=== PATIENT | male | born 1985 | race Caucasian/White ===

== ENCOUNTER 2017-10-13 22:47 | Inpatient (IN) | payer SELFPAY ==
[2017-10-13] MEDS: NOREPINEPHRIN PREMIX 250 ML IV (23:04)
[2017-10-13] MEDS ORDERED: PROPOFOL 50 ML IV (23:10)
[2017-10-13 23:12] LABS: POC GLUCOSE 220 mg/dL (70-99)
[2017-10-13 23:15] LABS: PCO2 ABG 74 mmHg (35-46)
[2017-10-13 23:16] LABS: BASE EXCESS ABG -8 mmol/L (-3-3); FIO2 ABG 100; HCO3 ABG 23 mmol/L (21-28); PH ABG 7.11 (7.35-7.45); PO2 ABG 463 mmHg (85-108); SAT O2 ABG 99 % (92-99)
[2017-10-13 23:18] LABS: ADD MAN DIFF? NO; BASO # 0.1 x10^3/uL (0.0-0.2); BASO % 1 % (0-3); EOS % 1 % (0-3); HEMOGLOBIN 14.9 g/dL (13.0-17.5); LYMPH # 3.3 x10^3/uL (1.0-4.8); LYMPH % 57 % (24-48); MEAN CORPUSCULAR HEMOGLOBIN 36 pg (25-35); MEAN CORPUSCULAR HGB CONC 34 g/dL (31-37); MEAN CORPUSCULAR VOLUME 107 fL (79-100); MONO # 0.7 x10^3/uL (0.0-1.1); MONO % 12 % (0-9); NEUT # 1.7 x10^3uL (1.8-7.7); NEUT % 30 % (31-73); PLATELET COUNT 236 x10^3/uL (140-400); RED BLOOD COUNT 4.09 x10^6/uL (4.30-5.70); RED CELL DISTRIBUTION WIDTH 13.9 % (11.5-14.5); WHITE BLOOD COUNT 5.7 x10^3/uL (4.0-11.0)
[2017-10-13] MEDS: PROPOFOL 20 ML IV (23:20)
[2017-10-13 23:24] LABS: BILIRUBIN,URINE NEGATIVE (NEG); CLARITY,URINE CLEAR; COLOR,URINE YELLOW; GLUCOSE,URINE NEGATIVE (NEG); NITRITE,URINE NEGATIVE (NEG); PROTEIN,URINE 30 mg/dL (NEG-TRACE); UROBILINOGEN,URINE 0.2 mg/dL (0.2 mg/dL)
[2017-10-13 23:26] LABS: ANION GAP 8 (6-14); BLOOD UREA NITROGEN 13 mg/dL (8-26); BUN/CREATININE RATIO 14 (6-20); CALCIUM 7.4 mg/dL (8.5-10.1); CARBON DIOXIDE 31 mmol/L (21-32); CHLORIDE 113 mmol/L (98-107); CREATININE 0.9 mg/dL (0.7-1.3); GFR 97.2; GLUCOSE 127 mg/dL (70-99); POTASSIUM 4.4 mmol/L (3.5-5.1); SODIUM 152 mmol/L (136-145)
[2017-10-13 23:30] LABS: BARBITURATES NEG (NEG); BENZODIAZEPINES NEG (NEG); CANNABINOIDS NEG (NEG); COCAINE NEG (NEG); METHADONE NEG (NEG); OPIATES POS (NEG); PHENCYCLIDINE NEG (NEG)
[2017-10-13 23:31] LABS: ALBUMIN 3.5 g/dL (3.4-5.0); ALBUMIN/GLOBULIN RATIO 1.1 (1.0-1.7); ALK PHOS 57 U/L (46-116); ALT (SGPT) 117 U/L (16-63); AMPHETAMINE/METHAMPHETAMINE NEG (NEG); AST (SGOT) 77 U/L (15-37); ETHANOL, URINE POS (NEG); TOTAL BILIRUBIN 0.2 mg/dL (0.2-1.0); TOTAL PROTEIN 6.6 g/dL (6.4-8.2)
[2017-10-13 23:33] LABS: TROPONINI < 0.017 ng/mL (0.000-0.055)
[2017-10-13 23:38] LABS: ACETAMIN < 2 mcg/ml (10-30); ETHANOL 387 mg/dL (0-10); SALIC 3.1 mg/dL (2.8-20.0)
[2017-10-13 23:41] LABS: BACTERIA,URINE 0 /HPF (0-FEW); WBC,URINE OCC /HPF (0-4)
[2017-10-13 23:42] LABS: SPERM,URINE PRESENT /HPF
[2017-10-14] MEDS: IV NORMAL SALINE 1000ML BAG 1,000 ML IV ×6 (00:15→10:15)
[2017-10-14] MEDS ORDERED: 0.9 % SODIUM CHLORIDE 10 ML DISP.SYRIN. IV (01:00)
[2017-10-14] MEDS ORDERED: MINERAL OIL/PETROLATUM,WHITE OPHTH OINT 3.5GM TUBE. OU (01:00)
[2017-10-14] MEDS ORDERED: fentaNYL PF VIAL 100 MCG/2 ML VIAL IV (01:00)
[2017-10-14] MEDS: PROPOFOL 100 ML IV ×4 (01:05→20:31)
[2017-10-14] MEDS: VECURONIUM BOLUS 10 MG VIAL. IV ×7 (01:47→20:30)
[2017-10-14 02:15] LABS: LACTIC ACID 5.1 mmol/L (0.4-2.0)
[2017-10-14 03:08] LABS: POC GLUCOSE 118 mg/dL (70-99)
[2017-10-14 03:46] LABS: BASE EXCESS ABG -9 mmol/L (-3-3); BODY TEMP ABG 89.6 DEG; CORRECTED PCO2 ABG 38 mmHg; CORRECTED PH ABG 7.28; CORRECTED PO2 ABG 61 mmHg; HCO3 ABG 19 mmol/L (21-28); PCO2 ABG 47 mmHg (35-46); PH ABG 7.22 (7.35-7.45); PO2 ABG 84 mmHg (85-108); SAT O2 ABG 94 % (92-99)
[2017-10-14 04:03] LABS: POC GLUCOSE 142 mg/dL (70-99)
[2017-10-14 04:08] LABS: ANION GAP 14 (6-14); BLOOD UREA NITROGEN 12 mg/dL (8-26); CALCIUM 7.1 mg/dL (8.5-10.1); CARBON DIOXIDE 22 mmol/L (21-32); CHLORIDE 113 mmol/L (98-107); CREATININE 0.7 mg/dL (0.7-1.3); GFR 129.9; GLUCOSE 156 mg/dL (70-99); MAGNESIUM 1.7 mg/dL (1.8-2.4); SODIUM 149 mmol/L (136-145)
[2017-10-14 04:12] LABS: LACTIC ACID 2.1 mmol/L (0.4-2.0)
[2017-10-14 04:18] LABS: POTASSIUM 3.4 mmol/L (3.5-5.1)
[2017-10-14 04:21] LABS: CKMB MASS 2.8 ng/mL (0.0-3.6); CREATINE KINASE 273 U/L (39-308)
[2017-10-14] MEDS: PIPERACILLIN/TAZOBACTAM 3.375 GM in IV NORMAL SALINE 50ML 50 ML IV ×4 (04:51→22:47)
[2017-10-14] MEDS ORDERED: PIPERACILLIN/TAZOBACTAM 3.375 GM in IV NORMAL SALINE 50ML 50 ML IV (05:00)
[2017-10-14] MEDS: MEPERIDINE PF 25 MG/ML VIAL. IV (05:19)
[2017-10-14] MEDS: POTASSIUM CHLORIDE 20MEQ 50 ML IV ×2 (05:22→06:38)
[2017-10-14] MEDS: ACETAMINOPHEN 650 MG/20.3 ML SOLUTION. NG ×3 (06:00→17:15)
[2017-10-14] MEDS: MAGNESIUM SULFATE 2GM 50 ML IV (06:12)
[2017-10-14 06:29] LABS: HEMATOCRIT 41.7 % (39.0-53.0); HEMOGLOBIN 14.2 g/dL (13.0-17.5); MEAN CORPUSCULAR HEMOGLOBIN 36 pg (25-35); MEAN CORPUSCULAR HGB CONC 34 g/dL (31-37); MEAN CORPUSCULAR VOLUME 105 fL (79-100); PLATELET COUNT 220 x10^3/uL (140-400); RED BLOOD COUNT 3.96 x10^6/uL (4.30-5.70); RED CELL DISTRIBUTION WIDTH 13.4 % (11.5-14.5); WHITE BLOOD COUNT 8.1 x10^3/uL (4.0-11.0)
[2017-10-14 06:39] LABS: PARTIAL THROMBOPLASTIN TIME 20 SEC (24-38); PROTHROMBIN TIME PATIENT 12.9 SEC (11.7-14.0)
[2017-10-14 07:03] LABS: TROPONINI 1.262 ng/mL (0.000-0.055)
[2017-10-14 08:59] LABS: BASE EXCESS ABG -7 mmol/L (-3-3); HCO3 ABG 18 mmol/L (21-28); PCO2 ABG 34 mmHg (35-46); PH ABG 7.33 (7.35-7.45); PO2 ABG 130 mmHg (85-108); SAT O2 ABG 98 % (92-99)
[2017-10-14 09:03] LABS: BODY TEMP ABG 91.9 DEG; CORRECTED PCO2 ABG 29 mmHg; CORRECTED PH ABG 7.38; CORRECTED PO2 ABG 109 mmHg
[2017-10-14 09:05] LABS: FIO2 ABG 50
[2017-10-14 09:09] LABS: ANION GAP 17 (6-14); BLOOD UREA NITROGEN 17 mg/dL (8-26); CALCIUM 7.3 mg/dL (8.5-10.1); CARBON DIOXIDE 20 mmol/L (21-32); CHLORIDE 114 mmol/L (98-107); CREATININE 0.7 mg/dL (0.7-1.3); GFR 129.9; GLUCOSE 102 mg/dL (70-99); MAGNESIUM 2.5 mg/dL (1.8-2.4); PHOSPHORUS 2.5 mg/dL (2.6-4.7); POTASSIUM 3.6 mmol/L (3.5-5.1); SODIUM 151 mmol/L (136-145)
[2017-10-14 09:11] LABS: IONIZED CALCIUM 0.95 mmol/L (1.13-1.32)
[2017-10-14 09:12] LABS: LIPASE 1779 U/L (73-393)
[2017-10-14] MEDS: FAMOTIDINE 20 MG/2 ML VIAL IVP ×2 (09:12→21:23)
[2017-10-14 09:19] LABS: NT-PRO BNP 48 pg/mL (0-124)
[2017-10-14] MEDS: CALCIUM GLUCONATE 1,000 MG in IV NORMAL SALINE 100ML 100 ML IV (10:27)
[2017-10-14] MEDS: SODIUM BICARB ADULT 8.4% 50 MEQ/50 ML DISP.SYRIN. IV (10:52)
[2017-10-14] MEDS: ENOXAPARIN 40 MG/0.4 ML SYRINGE. SQ (12:00)
[2017-10-14] MEDS: ALTEPLASE 2 MG VIAL INT CAT (12:21)
[2017-10-14 12:28] LABS: ANION GAP 15 (6-14); BLOOD UREA NITROGEN 18 mg/dL (8-26); CALCIUM 7.4 mg/dL (8.5-10.1); CARBON DIOXIDE 22 mmol/L (21-32); CHLORIDE 112 mmol/L (98-107); CREATININE 0.5 mg/dL (0.7-1.3); GFR 191.5; GLUCOSE 89 mg/dL (70-99); PHOSPHORUS 1.9 mg/dL (2.6-4.7); SODIUM 149 mmol/L (136-145)
[2017-10-14 12:33] LABS: LACTIC ACID 1.5 mmol/L (0.4-2.0)
[2017-10-14 14:00] LABS: ALBUMIN 3.6 g/dL (3.4-5.0); ALK PHOS 68 U/L (46-116); ALT (SGPT) 248 U/L (16-63); AST (SGOT) 297 U/L (15-37); DIRECT BILIRUBIN 0.2 mg/dL (0.0-0.2); TOTAL BILIRUBIN 0.3 mg/dL (0.2-1.0); TOTAL PROTEIN 6.4 g/dL (6.4-8.2)
[2017-10-14 14:04] LABS: HEMATOCRIT 41.4 % (39.0-53.0); HEMOGLOBIN 14.2 g/dL (13.0-17.5); MEAN CORPUSCULAR HGB CONC 34 g/dL (31-37)
[2017-10-14 14:05] LABS: TROPONINI 1.266 ng/mL (0.000-0.055)
[2017-10-14] MEDS: IV 1/2 NORMAL SALINE 1,000 ML IV (14:58)
[2017-10-14] MEDS: POTASSIUM PHOSPHATE DIBASIC 10 MMOL in IV NORMAL SALINE 100ML 100 ML IV ×2 (15:04→17:14)
[2017-10-14 16:44] LABS: INR 1.1 (0.8-1.1); PARTIAL THROMBOPLASTIN TIME 23 SEC (24-38); PROTHROMBIN TIME PATIENT 14.1 SEC (11.7-14.0)
[2017-10-14 17:16] LABS: MRSA BY PCR Negative (Negative)
[2017-10-14 18:23] LABS: TROPONINI 0.785 ng/mL (0.000-0.055)
[2017-10-14 20:07] LABS: ANION GAP 14 (6-14); BLOOD UREA NITROGEN 18 mg/dL (8-26); CALCIUM 7.3 mg/dL (8.5-10.1); CARBON DIOXIDE 25 mmol/L (21-32); CHLORIDE 111 mmol/L (98-107); CREATININE 0.6 mg/dL (0.7-1.3); GFR 155.2; GLUCOSE 87 mg/dL (70-99); MAGNESIUM 1.7 mg/dL (1.8-2.4); PHOSPHORUS 4.4 mg/dL (2.6-4.7); POTASSIUM 3.5 mmol/L (3.5-5.1); SODIUM 150 mmol/L (136-145)
[2017-10-14 20:14] LABS: LACTIC ACID 1.3 mmol/L (0.4-2.0)
[2017-10-14 22:11] LABS: HEMATOCRIT 44.1 % (39.0-53.0); HEMOGLOBIN 15.2 g/dL (13.0-17.5); MEAN CORPUSCULAR HEMOGLOBIN 36 pg (25-35); MEAN CORPUSCULAR HGB CONC 34 g/dL (31-37); MEAN CORPUSCULAR VOLUME 104 fL (79-100); PLATELET COUNT 186 x10^3/uL (140-400); RED BLOOD COUNT 4.25 x10^6/uL (4.30-5.70); RED CELL DISTRIBUTION WIDTH 13.7 % (11.5-14.5); WHITE BLOOD COUNT 5.9 x10^3/uL (4.0-11.0)
[2017-10-14 22:21] LABS: PARTIAL THROMBOPLASTIN TIME 23 SEC (24-38); PROTHROMBIN TIME PATIENT 12.7 SEC (11.7-14.0)
[2017-10-14] MEDS: CHLORHEXIDINE 0.12% 15 ML MOUTHWASH. SWSP (22:54)
[2017-10-15] MEDS: ACETAMINOPHEN 650 MG/20.3 ML SOLUTION. NG
[2017-10-15 00:58] LABS: ANION GAP 15 (6-14); BLOOD UREA NITROGEN 18 mg/dL (8-26); CALCIUM 6.8 mg/dL (8.5-10.1); CARBON DIOXIDE 25 mmol/L (21-32); CHLORIDE 110 mmol/L (98-107); CREATININE 0.6 mg/dL (0.7-1.3); GFR 155.2; GLUCOSE 99 mg/dL (70-99); MAGNESIUM 1.7 mg/dL (1.8-2.4); PHOSPHORUS 3.9 mg/dL (2.6-4.7); POTASSIUM 3.4 mmol/L (3.5-5.1); SODIUM 150 mmol/L (136-145)
[2017-10-15] MEDS ORDERED: ACETAMINOPHEN 650 MG SUPP.RECT. PR (01:00)
[2017-10-15] MEDS: IV 1/2 NORMAL SALINE 1,000 ML IV ×5 (02:36→22:36)
[2017-10-15] MEDS: VECURONIUM BOLUS 10 MG VIAL. IV ×2 (02:38→04:42)
[2017-10-15] MEDS: PROPOFOL 100 ML IV ×6 (02:51→22:35)
[2017-10-15] MEDS: PIPERACILLIN/TAZOBACTAM 3.375 GM in IV NORMAL SALINE 50ML 50 ML IV ×4 (04:41→22:35)
[2017-10-15 05:43] LABS: ANION GAP 15 (6-14); BLOOD UREA NITROGEN 19 mg/dL (8-26); CALCIUM 6.9 mg/dL (8.5-10.1); CARBON DIOXIDE 24 mmol/L (21-32); CHLORIDE 108 mmol/L (98-107); CREATININE 0.6 mg/dL (0.7-1.3); GFR 155.2; GLUCOSE 95 mg/dL (70-99); MAGNESIUM 1.8 mg/dL (1.8-2.4); PHOSPHORUS 3.3 mg/dL (2.6-4.7); POTASSIUM 3.2 mmol/L (3.5-5.1); SODIUM 147 mmol/L (136-145)
[2017-10-15 07:00] LABS: ANION GAP 14 (6-14); BLOOD UREA NITROGEN 18 mg/dL (8-26); CALCIUM 6.6 mg/dL (8.5-10.1); CARBON DIOXIDE 24 mmol/L (21-32); CHLORIDE 108 mmol/L (98-107); CREATININE 0.6 mg/dL (0.7-1.3); GFR 155.2; GLUCOSE 95 mg/dL (70-99); POTASSIUM 3.3 mmol/L (3.5-5.1); SODIUM 146 mmol/L (136-145)
[2017-10-15 07:03] LABS: HEMATOCRIT 43.7 % (39.0-53.0); HEMOGLOBIN 15.3 g/dL (13.0-17.5); MEAN CORPUSCULAR HEMOGLOBIN 36 pg (25-35); MEAN CORPUSCULAR HGB CONC 35 g/dL (31-37); MEAN CORPUSCULAR VOLUME 103 fL (79-100); PLATELET COUNT 179 x10^3/uL (140-400); RED BLOOD COUNT 4.25 x10^6/uL (4.30-5.70); RED CELL DISTRIBUTION WIDTH 13.6 % (11.5-14.5); WHITE BLOOD COUNT 5.1 x10^3/uL (4.0-11.0)
[2017-10-15 08:09] LABS: PARTIAL THROMBOPLASTIN TIME 25 SEC (24-38); PROTHROMBIN TIME PATIENT 12.9 SEC (11.7-14.0)
[2017-10-15 08:24] LABS: ANION GAP 12 (6-14); BLOOD UREA NITROGEN 19 mg/dL (8-26); CALCIUM 7.1 mg/dL (8.5-10.1); CARBON DIOXIDE 27 mmol/L (21-32); CHLORIDE 108 mmol/L (98-107); CREATININE 0.7 mg/dL (0.7-1.3); GFR 129.9; GLUCOSE 93 mg/dL (70-99); MAGNESIUM 1.7 mg/dL (1.8-2.4); PHOSPHORUS 3.6 mg/dL (2.6-4.7); POTASSIUM 3.2 mmol/L (3.5-5.1); SODIUM 147 mmol/L (136-145)
[2017-10-15 08:26] LABS: ALBUMIN 3.2 g/dL (3.4-5.0); ALK PHOS 67 U/L (46-116); ALT (SGPT) 194 U/L (16-63); AST (SGOT) 143 U/L (15-37); DIRECT BILIRUBIN 0.2 mg/dL (0.0-0.2); TOTAL BILIRUBIN 0.6 mg/dL (0.2-1.0); TOTAL PROTEIN 6.1 g/dL (6.4-8.2)
[2017-10-15 09:04] LABS: LIPASE 5435 U/L (73-393)
[2017-10-15 09:17] LABS: IONIZED CALCIUM 0.84 mmol/L (1.13-1.32)
[2017-10-15] MEDS: FAMOTIDINE 20 MG/2 ML VIAL IVP ×2 (09:23→20:47)
[2017-10-15 09:29] LABS: BASE EXCESS COOX -3 mmol/L (-3-3); HCO3 COOX 21 mmol/L (21-28); PCO2 COOX 37 mmHg (35-46); PH COOX 7.39 (7.35-7.45); PO2 COOX 127 mmHg (85-108)
[2017-10-15 09:30] LABS: CORRECTED PCO2 COOX 34 mmHg; CORRECTED PH COOX 7.41; CORRECTED PO2 COOX 118 mmHg; FIO2 COOX 40; O2 CONTENT TEMP 96; SAT O2 COOX 98 % (92-99)
[2017-10-15] MEDS: IV NORMAL SALINE 1000ML BAG 1,000 ML IV (10:25)
[2017-10-15 12:02] LABS: ANION GAP 12 (6-14); BLOOD UREA NITROGEN 19 mg/dL (8-26); CALCIUM 6.2 mg/dL (8.5-10.1); CARBON DIOXIDE 25 mmol/L (21-32); CHLORIDE 107 mmol/L (98-107); CREATININE 0.8 mg/dL (0.7-1.3); GFR 111.3; GLUCOSE 76 mg/dL (70-99); MAGNESIUM 1.5 mg/dL (1.8-2.4); PHOSPHORUS 3.9 mg/dL (2.6-4.7); POTASSIUM 3.6 mmol/L (3.5-5.1); SODIUM 144 mmol/L (136-145)
[2017-10-15] MEDS: PANTOPRAZOLE IV PUSH 40 MG VIAL. IVP (13:17)
[2017-10-15] MEDS: CHLORHEXIDINE 0.12% 15 ML MOUTHWASH. SWSP ×2 (13:17→20:47)
[2017-10-15 13:20] LABS: HEMATOCRIT 43.8 % (39.0-53.0); HEMOGLOBIN 15.1 g/dL (13.0-17.5); MEAN CORPUSCULAR HEMOGLOBIN 36 pg (25-35); MEAN CORPUSCULAR HGB CONC 34 g/dL (31-37); MEAN CORPUSCULAR VOLUME 104 fL (79-100); PLATELET COUNT 169 x10^3/uL (140-400); RED BLOOD COUNT 4.22 x10^6/uL (4.30-5.70); RED CELL DISTRIBUTION WIDTH 13.7 % (11.5-14.5); WHITE BLOOD COUNT 5.9 x10^3/uL (4.0-11.0)
[2017-10-15 13:30] LABS: PARTIAL THROMBOPLASTIN TIME 23 SEC (24-38); PROTHROMBIN TIME PATIENT 12.9 SEC (11.7-14.0)
[2017-10-15 17:03] LABS: ANION GAP 14 (6-14); BLOOD UREA NITROGEN 20 mg/dL (8-26); CARBON DIOXIDE 24 mmol/L (21-32); CHLORIDE 106 mmol/L (98-107); CREATININE 0.7 mg/dL (0.7-1.3); GFR 129.9; GLUCOSE 71 mg/dL (70-99); MAGNESIUM 1.4 mg/dL (1.8-2.4); PHOSPHORUS 3.6 mg/dL (2.6-4.7); POTASSIUM 3.6 mmol/L (3.5-5.1); SODIUM 144 mmol/L (136-145)
[2017-10-15 17:13] LABS: CALCIUM 6.1 mg/dL (8.5-10.1)
[2017-10-15] MEDS: ENOXAPARIN 40 MG/0.4 ML SYRINGE. SQ (17:36)
[2017-10-15] MEDS: MAGNESIUM SULFATE 4GM 100 ML IV (18:26)
[2017-10-16] MEDS: ACETAMINOPHEN 650 MG/20.3 ML SOLUTION. NG ×2 (00:11→09:10)
[2017-10-16] MEDS ORDERED: ELECTROLYTE (ICU) PROTOCOL. MC (01:00)
[2017-10-16] MEDS: PIPERACILLIN/TAZOBACTAM 3.375 GM in IV NORMAL SALINE 50ML 50 ML IV ×4 (04:06→22:58)
[2017-10-16] MEDS: IV 1/2 NORMAL SALINE 1,000 ML IV ×3 (04:06→15:18)
[2017-10-16] MEDS: PROPOFOL 100 ML IV ×2 (04:07→09:10)
[2017-10-16] MEDS: PANTOPRAZOLE IV PUSH 40 MG VIAL. IVP (07:30)
[2017-10-16 08:44] LABS: BASE EXCESS ABG -2 mmol/L (-3-3); FIO2 ABG 40; HCO3 ABG 22 mmol/L (21-28); PCO2 ABG 34 mmHg (35-46); PH ABG 7.43 (7.35-7.45); PO2 ABG 109 mmHg (85-108); SAT O2 ABG 98 % (92-99)
[2017-10-16] MEDS: CHLORHEXIDINE 0.12% 15 ML MOUTHWASH. SWSP (09:00)
[2017-10-16 09:03] LABS: HEMATOCRIT 40.2 % (39.0-53.0); HEMOGLOBIN 13.9 g/dL (13.0-17.5); MEAN CORPUSCULAR HEMOGLOBIN 36 pg (25-35); MEAN CORPUSCULAR HGB CONC 35 g/dL (31-37); MEAN CORPUSCULAR VOLUME 104 fL (79-100); PLATELET COUNT 156 x10^3/uL (140-400); RED BLOOD COUNT 3.85 x10^6/uL (4.30-5.70); RED CELL DISTRIBUTION WIDTH 14.1 % (11.5-14.5); WHITE BLOOD COUNT 9.8 x10^3/uL (4.0-11.0)
[2017-10-16] MEDS: FAMOTIDINE 20 MG/2 ML VIAL IVP ×2 (09:10→22:51)
[2017-10-16 09:45] LABS: PARTIAL THROMBOPLASTIN TIME 30 SEC (24-38)
[2017-10-16 10:10] LABS: BASE EXCESS ABG -1 mmol/L (-3-3); FIO2 ABG 40; HCO3 ABG 22 mmol/L (21-28); PCO2 ABG 33 mmHg (35-46); PH ABG 7.44 (7.35-7.45); PO2 ABG 83 mmHg (85-108); SAT O2 ABG 96 % (92-99)
[2017-10-16 10:57] LABS: ALBUMIN 2.7 g/dL (3.4-5.0); ALK PHOS 108 U/L (46-116); ALT (SGPT) 131 U/L (16-63); ANION GAP 12 (6-14); AST (SGOT) 124 U/L (15-37); BLOOD UREA NITROGEN 13 mg/dL (8-26); CALCIUM 6.1 mg/dL (8.5-10.1); CARBON DIOXIDE 24 mmol/L (21-32); CHLORIDE 105 mmol/L (98-107); CREATININE 0.8 mg/dL (0.7-1.3); DIRECT BILIRUBIN 0.3 mg/dL (0.0-0.2); GFR 111.3; GLUCOSE 72 mg/dL (70-99); PHOSPHORUS 2.2 mg/dL (2.6-4.7); POTASSIUM 3.3 mmol/L (3.5-5.1); SODIUM 141 mmol/L (136-145); TOTAL BILIRUBIN 0.5 mg/dL (0.2-1.0); TOTAL PROTEIN 5.2 g/dL (6.4-8.2)
[2017-10-16] MEDS: ENOXAPARIN 40 MG/0.4 ML SYRINGE. SQ (11:07)
[2017-10-16 11:10] LABS: LIPASE 3642 U/L (73-393)
[2017-10-16 13:10] LABS: MAGNESIUM 2.2 mg/dL (1.8-2.4)
[2017-10-16] MEDS: CALCIUM GLUCONATE 1,000 MG in IV NORMAL SALINE 100ML 100 ML IV (13:58)
[2017-10-16] MEDS ORDERED: POTASSIUM CHLORIDE 20MEQ 50 ML IV (14:00)
[2017-10-16] MEDS: POTASSIUM CL 40MEQ D5-0.45NACL 1,000 ML IV (14:12)
[2017-10-16 16:20] LABS: HCV ANTIBODY <0.1 s/co ratio (0.0-0.9); HEP A IGM ABDY Negative (Negative); HEP B SURFACE AG Negative (Negative)
[2017-10-16] MEDS: MULTIVIT INFUSN,ADULT 4,VIT K 10 ML, THIAMINE 100 MG, FOLIC ACID 1 MG in IV NORMAL SALI... IV (16:49)
[2017-10-17] MEDS: IV 1/2 NORMAL SALINE 1,000 ML IV ×3 (01:16→07:54)
[2017-10-17] MEDS: HALOPERIDOL LACTATE 5 MG/ML VIAL. IVP ×4 (02:33→20:46)
[2017-10-17] MEDS: PIPERACILLIN/TAZOBACTAM 3.375 GM in IV NORMAL SALINE 50ML 50 ML IV ×4 (05:24→22:47)
[2017-10-17 05:25] LABS: BASO % 0 % (0-3); EOS % 0 % (0-3); HEMATOCRIT 35.8 % (39.0-53.0); HEMOGLOBIN 12.4 g/dL (13.0-17.5); LYMPH # 0.6 x10^3/uL (1.0-4.8); LYMPH % 7 % (24-48); MEAN CORPUSCULAR HEMOGLOBIN 36 pg (25-35); MEAN CORPUSCULAR HGB CONC 35 g/dL (31-37); MEAN CORPUSCULAR VOLUME 103 fL (79-100); MONO # 0.6 x10^3/uL (0.0-1.1); MONO % 7 % (0-9); NEUT # 7.2 x10^3uL (1.8-7.7); NEUT % 85 % (31-73); PLATELET COUNT 119 x10^3/uL (140-400); RED BLOOD COUNT 3.47 x10^6/uL (4.30-5.70); RED CELL DISTRIBUTION WIDTH 13.7 % (11.5-14.5); WHITE BLOOD COUNT 8.4 x10^3/uL (4.0-11.0)
[2017-10-17 05:34] LABS: ANION GAP 12 (6-14); BLOOD UREA NITROGEN 9 mg/dL (8-26); CALCIUM 6.9 mg/dL (8.5-10.1); CARBON DIOXIDE 21 mmol/L (21-32); CHLORIDE 106 mmol/L (98-107); CREATININE 0.7 mg/dL (0.7-1.3); GFR 129.9; GLUCOSE 81 mg/dL (70-99); LIPASE 1173 U/L (73-393); POTASSIUM 3.4 mmol/L (3.5-5.1); SODIUM 139 mmol/L (136-145)
[2017-10-17 05:46] LABS: ADD MAN DIFF? YES
[2017-10-17] MEDS: PANTOPRAZOLE IV PUSH 40 MG VIAL. IVP (07:54)
[2017-10-17] MEDS: FAMOTIDINE 20 MG/2 ML VIAL IVP (07:54)
[2017-10-17 09:07] LABS: % BANDS 10 % (0-9); % LYMPHS 6 % (24-48); % MONOS 6 % (0-10); % SEGS 78 % (35-66)
[2017-10-17 09:08] LABS: PLT ESTIMATE DECREASED (ADEQUATE)
[2017-10-17] MEDS ORDERED: POTASSIUM CHLORIDE 20MEQ 50 ML IV (10:15)
[2017-10-17] MEDS: POTASSIUM CHLORIDE 10 MEQ in IV NORMAL SALINE 100ML 100 ML IV ×2 (11:22→11:49)
[2017-10-17] MEDS: MULTIVIT INFUSN,ADULT 4,VIT K 10 ML, THIAMINE 100 MG, FOLIC ACID 1 MG in IV NORMAL SALI... IV (11:22)
[2017-10-17] MEDS: AMINO AC 3%/ELECTROLYTE/GLYCER 1,000 ML IV ×2 (12:19→22:51)
[2017-10-17] MEDS: ENOXAPARIN 40 MG/0.4 ML SYRINGE. SQ (12:19)
[2017-10-17] MEDS: methylPREDNISolone SOD SUCC PF 40 MG/ML VIAL. IV ×2 (14:45→22:01)
[2017-10-18] MEDS: HALOPERIDOL LACTATE 5 MG/ML VIAL. IVP ×2 (00:18→18:07)
[2017-10-18 04:52] LABS: ADD MAN DIFF? NO
[2017-10-18 05:05] LABS: BASO % 0 % (0-3); EOS % 0 % (0-3); HEMATOCRIT 33.8 % (39.0-53.0); HEMOGLOBIN 11.8 g/dL (13.0-17.5); LYMPH # 0.2 x10^3/uL (1.0-4.8); LYMPH % 3 % (24-48); MEAN CORPUSCULAR HEMOGLOBIN 36 pg (25-35); MEAN CORPUSCULAR HGB CONC 35 g/dL (31-37); MEAN CORPUSCULAR VOLUME 102 fL (79-100); MONO # 0.3 x10^3/uL (0.0-1.1); MONO % 4 % (0-9); NEUT # 6.4 x10^3uL (1.8-7.7); NEUT % 93 % (31-73); PLATELET COUNT 146 x10^3/uL (140-400); RED CELL DISTRIBUTION WIDTH 13.5 % (11.5-14.5); WHITE BLOOD COUNT 6.9 x10^3/uL (4.0-11.0)
[2017-10-18] MEDS: PIPERACILLIN/TAZOBACTAM 3.375 GM in IV NORMAL SALINE 50ML 50 ML IV ×4 (05:36→23:15)
[2017-10-18] MEDS: methylPREDNISolone SOD SUCC PF 40 MG/ML VIAL. IV (05:40)
[2017-10-18 05:41] LABS: ANION GAP 13 (6-14); BLOOD UREA NITROGEN 13 mg/dL (8-26); CALCIUM 7.9 mg/dL (8.5-10.1); CARBON DIOXIDE 20 mmol/L (21-32); CHLORIDE 109 mmol/L (98-107); CREATININE 0.6 mg/dL (0.7-1.3); GFR 155.2; GLUCOSE 147 mg/dL (70-99); POTASSIUM 3.7 mmol/L (3.5-5.1); SODIUM 142 mmol/L (136-145)
[2017-10-18 05:54] LABS: LIPASE 285 U/L (73-393)
[2017-10-18] MEDS: PANTOPRAZOLE IV PUSH 40 MG VIAL. IVP (08:46)
[2017-10-18] MEDS: ENOXAPARIN 40 MG/0.4 ML SYRINGE. SQ (12:08)
[2017-10-18] MEDS: MULTIVIT INFUSN,ADULT 4,VIT K 10 ML, THIAMINE 100 MG, FOLIC ACID 1 MG in IV NORMAL SALI... IV (12:16)
[2017-10-18] MEDS: AMINO AC 3%/ELECTROLYTE/GLYCER 1,000 ML IV (12:16)
[2017-10-18] MEDS: NICOTINE 21MG PATCH. TD (21:41)
[2017-10-19] MEDS: AMINO AC 3%/ELECTROLYTE/GLYCER 1,000 ML IV ×2 (03:02→13:00)
[2017-10-19] MEDS: PIPERACILLIN/TAZOBACTAM 3.375 GM in IV NORMAL SALINE 50ML 50 ML IV ×4 (05:20→23:28)
[2017-10-19 05:29] LABS: ADD MAN DIFF? NO
[2017-10-19 05:47] LABS: BASO % 0 % (0-3); EOS % 0 % (0-3); HEMATOCRIT 34.2 % (39.0-53.0); HEMOGLOBIN 11.9 g/dL (13.0-17.5); LYMPH % 10 % (24-48); MEAN CORPUSCULAR HEMOGLOBIN 36 pg (25-35); MEAN CORPUSCULAR HGB CONC 35 g/dL (31-37); MEAN CORPUSCULAR VOLUME 102 fL (79-100); MONO # 1.2 x10^3/uL (0.0-1.1); MONO % 13 % (0-9); NEUT # 7.3 x10^3uL (1.8-7.7); NEUT % 77 % (31-73); PLATELET COUNT 187 x10^3/uL (140-400); RED BLOOD COUNT 3.35 x10^6/uL (4.30-5.70); RED CELL DISTRIBUTION WIDTH 12.9 % (11.5-14.5); WHITE BLOOD COUNT 9.4 x10^3/uL (4.0-11.0)
[2017-10-19 06:05] LABS: ANION GAP 11 (6-14); BLOOD UREA NITROGEN 17 mg/dL (8-26); CALCIUM 7.8 mg/dL (8.5-10.1); CARBON DIOXIDE 22 mmol/L (21-32); CHLORIDE 108 mmol/L (98-107); CREATININE 0.6 mg/dL (0.7-1.3); GFR 155.2; GLUCOSE 91 mg/dL (70-99); LIPASE 801 U/L (73-393); POTASSIUM 3.4 mmol/L (3.5-5.1); SODIUM 141 mmol/L (136-145)
[2017-10-19] MEDS: MULTIVIT INFUSN,ADULT 4,VIT K 10 ML, THIAMINE 100 MG, FOLIC ACID 1 MG in IV NORMAL SALI... IV (08:07)
[2017-10-19] MEDS: methylPREDNISolone SOD SUCC PF 40 MG/ML VIAL. IV (08:08)
[2017-10-19] MEDS: PANTOPRAZOLE IV PUSH 40 MG VIAL. IVP (08:08)
[2017-10-19] MEDS: NICOTINE 21MG PATCH. TD (08:11)
[2017-10-19] MEDS ORDERED: POTASSIUM CHLORIDE 20MEQ 50 ML IV (09:30)
[2017-10-19] MEDS ORDERED: NORMAL SALINE IV (10:00)
[2017-10-19] MEDS ORDERED: POTASSIUM ACETATE IV (10:00)
[2017-10-19] MEDS: POTASSIUM CHLORIDE 20 MEQ in IV NORMAL SALINE 250ML 250 ML IV (10:47)
[2017-10-19] MEDS: HALOPERIDOL LACTATE 5 MG/ML VIAL. IVP (11:45)
[2017-10-19] MEDS: ENOXAPARIN 40 MG/0.4 ML SYRINGE. SQ (12:04)
[2017-10-19] MEDS: LACTOBACILLUS RHAMNOSUS GG 1 CAPSULE. PO (21:00)
[2017-10-19] MEDS: diphenhydrAMINE 50 MG/ML VIAL IVP (23:27)
[2017-10-20] MEDS: HALOPERIDOL LACTATE 5 MG/ML VIAL. IVP (03:11)
[2017-10-20 04:36] LABS: ADD MAN DIFF? NO
[2017-10-20 04:53] LABS: BASO % 0 % (0-3); EOS % 0 % (0-3); HEMATOCRIT 33.9 % (39.0-53.0); HEMOGLOBIN 11.8 g/dL (13.0-17.5); LYMPH # 1.1 x10^3/uL (1.0-4.8); LYMPH % 12 % (24-48); MEAN CORPUSCULAR HEMOGLOBIN 36 pg (25-35); MEAN CORPUSCULAR HGB CONC 35 g/dL (31-37); MEAN CORPUSCULAR VOLUME 102 fL (79-100); MONO # 1.4 x10^3/uL (0.0-1.1); MONO % 14 % (0-9); NEUT # 6.9 x10^3uL (1.8-7.7); NEUT % 74 % (31-73); PLATELET COUNT 212 x10^3/uL (140-400); RED BLOOD COUNT 3.32 x10^6/uL (4.30-5.70); RED CELL DISTRIBUTION WIDTH 13.1 % (11.5-14.5); WHITE BLOOD COUNT 9.4 x10^3/uL (4.0-11.0)
[2017-10-20 05:41] LABS: ANION GAP 13 (6-14); BLOOD UREA NITROGEN 14 mg/dL (8-26); CALCIUM 8.2 mg/dL (8.5-10.1); CARBON DIOXIDE 23 mmol/L (21-32); CHLORIDE 106 mmol/L (98-107); CREATININE 0.8 mg/dL (0.7-1.3); GFR 111.3; GLUCOSE 76 mg/dL (70-99); LIPASE 975 U/L (73-393); POTASSIUM 3.1 mmol/L (3.5-5.1); SODIUM 142 mmol/L (136-145)
[2017-10-20] MEDS: PIPERACILLIN/TAZOBACTAM 3.375 GM in IV NORMAL SALINE 50ML 50 ML IV ×4 (06:10→23:43)
[2017-10-20] MEDS: LACTOBACILLUS RHAMNOSUS GG 1 CAPSULE. PO ×2 (06:56→20:43)
[2017-10-20] MEDS: methylPREDNISolone SOD SUCC PF 40 MG/ML VIAL. IV (08:30)
[2017-10-20] MEDS: PANTOPRAZOLE IV PUSH 40 MG VIAL. IVP (08:30)
[2017-10-20] MEDS: NICOTINE 21MG PATCH. TD (08:31)
[2017-10-20] MEDS: AMINO AC 3%/ELECTROLYTE/GLYCER 1,000 ML IV ×2 (08:32→17:18)
[2017-10-20] MEDS: MULTIVIT INFUSN,ADULT 4,VIT K 10 ML, THIAMINE 100 MG, FOLIC ACID 1 MG in IV NORMAL SALI... IV (09:00)
[2017-10-20] MEDS: ENOXAPARIN 40 MG/0.4 ML SYRINGE. SQ (11:55)
[2017-10-21] MEDS: PIPERACILLIN/TAZOBACTAM 3.375 GM in IV NORMAL SALINE 50ML 50 ML IV ×2 (04:26→11:01)
[2017-10-21] MEDS: AMINO AC 3%/ELECTROLYTE/GLYCER 1,000 ML IV (04:27)
[2017-10-21] MEDS: methylPREDNISolone SOD SUCC PF 40 MG/ML VIAL. IV (08:24)
[2017-10-21] MEDS: NICOTINE 21MG PATCH. TD (08:24)
[2017-10-21] MEDS: PANTOPRAZOLE IV PUSH 40 MG VIAL. IVP (08:24)
[2017-10-21] MEDS: LACTOBACILLUS RHAMNOSUS GG 1 CAPSULE. PO ×2 (08:25→20:37)
[2017-10-21] MEDS: ENOXAPARIN 40 MG/0.4 ML SYRINGE. SQ (11:02)
[2017-10-22 06:54] LABS: ALBUMIN 2.8 g/dL (3.4-5.0); ALK PHOS 114 U/L (46-116); ALT (SGPT) 53 U/L (16-63); AST (SGOT) 18 U/L (15-37); DIRECT BILIRUBIN 0.1 mg/dL (0.0-0.2); LIPASE 959 U/L (73-393); TOTAL BILIRUBIN 0.4 mg/dL (0.2-1.0); TOTAL PROTEIN 6.6 g/dL (6.4-8.2)
[2017-10-22] MEDS: predniSONE 20 MG TABLET PO (08:49)
[2017-10-22] MEDS: NICOTINE 21MG PATCH. TD (08:49)
[2017-10-22] MEDS: PANTOPRAZOLE 40 MG TABLET.DR. PO (08:49)
[2017-10-22] MEDS: LACTOBACILLUS RHAMNOSUS GG 1 CAPSULE. PO ×2 (08:49→21:00)
[2017-10-22] MEDS ORDERED: HALOPERIDOL 2 MG TABLET. PO (18:30)
[2017-10-22] MEDS: HALOPERIDOL 5 MG TABLET. PO (18:57)
[2017-10-22] MEDS: LORazepam 0.5 MG TABLET PO (18:57)
[2017-10-22] MEDS: HALOPERIDOL LACTATE 5 MG/ML VIAL. IM (20:00)
[2017-10-22] MEDS ORDERED: methylPREDNISolone SOD SUCC PF 40 MG/ML VIAL. IV (21:00)
[2017-10-22] MEDS ORDERED: HALOPERIDOL LACTATE 5 MG/ML VIAL. IM (21:00)
[2017-10-23] MEDS: LORazepam 0.5 MG TABLET PO ×3 (01:22→20:36)
[2017-10-23] MEDS: HALOPERIDOL 5 MG TABLET. PO ×2 (01:22→08:53)
[2017-10-23] MEDS: PANTOPRAZOLE 40 MG TABLET.DR. PO (05:42)
[2017-10-23] MEDS: NICOTINE 21MG PATCH. TD (08:52)
[2017-10-23] MEDS: predniSONE 20 MG TABLET PO (08:53)
[2017-10-23] MEDS: LACTOBACILLUS RHAMNOSUS GG 1 CAPSULE. PO ×2 (08:53→20:36)
[2017-10-23 15:30] LABS: LIPASE 985 U/L (73-393)
[2017-10-23] MEDS: POTASSIUM CHLORIDE 20 MEQ TABLET.ER. PO (16:02)
[2017-10-24 05:53] LABS: ADD MAN DIFF? NO
[2017-10-24 05:59] LABS: BASO % 0 % (0-3); EOS # 0.1 x10^3/uL (0.0-0.7); EOS % 1 % (0-3); HEMATOCRIT 39.1 % (39.0-53.0); HEMOGLOBIN 13.2 g/dL (13.0-17.5); LYMPH # 1.8 x10^3/uL (1.0-4.8); LYMPH % 14 % (24-48); MEAN CORPUSCULAR HEMOGLOBIN 34 pg (25-35); MEAN CORPUSCULAR HGB CONC 34 g/dL (31-37); MEAN CORPUSCULAR VOLUME 101 fL (79-100); MONO # 1.1 x10^3/uL (0.0-1.1); MONO % 8 % (0-9); NEUT % 77 % (31-73); PLATELET COUNT 482 x10^3/uL (140-400); RED BLOOD COUNT 3.86 x10^6/uL (4.30-5.70)
[2017-10-24 06:25] LABS: LIPASE 950 U/L (73-393)
[2017-10-24 06:29] LABS: ALBUMIN 3.1 g/dL (3.4-5.0); ALBUMIN/GLOBULIN RATIO 0.8 (1.0-1.7); ALK PHOS 151 U/L (46-116); ALT (SGPT) 46 U/L (16-63); ANION GAP 9 (6-14); AST (SGOT) 17 U/L (15-37); BLOOD UREA NITROGEN 15 mg/dL (8-26); BUN/CREATININE RATIO 17 (6-20); CALCIUM 9.2 mg/dL (8.5-10.1); CARBON DIOXIDE 29 mmol/L (21-32); CHLORIDE 101 mmol/L (98-107); CREATININE 0.9 mg/dL (0.7-1.3); GFR 97.2; GLUCOSE 80 mg/dL (70-99); SODIUM 139 mmol/L (136-145); TOTAL BILIRUBIN 0.3 mg/dL (0.2-1.0); TOTAL PROTEIN 7.1 g/dL (6.4-8.2)
[2017-10-24] MEDS: LACTOBACILLUS RHAMNOSUS GG 1 CAPSULE. PO ×2 (08:05→20:22)
[2017-10-24] MEDS: NICOTINE 21MG PATCH. TD (08:05)
[2017-10-24] MEDS: PANTOPRAZOLE 40 MG TABLET.DR. PO (08:05)
[2017-10-24] MEDS: predniSONE 20 MG TABLET PO (08:05)
== END 2017-10-24 20:30 | disposition home or self-care (01) | DRG 208 ==
LOC: 1 WEST ICU 23:45 → 2 SOUTH 10-18 19:29 → 5 NORTH 10-22 22:51 → ER 22:47
PROVIDERS: Internal Medicine
PROC: 5A1945Z Respiratory Ventilation, 24-96 Consecutive Hours (ICD-10-PCS; principal; 2017-10-13)
PROC: 0BH17EZ Insertion of Endotracheal Airway into Trachea, Via Natural or Artificial Opening (ICD-10-PCS; 2017-10-13)
PROC: 5A12012 Performance of Cardiac Output, Single, Manual (ICD-10-PCS; 2017-10-13)
DX: J96.01 Acute respiratory failure with hypoxia (principal); I46.9 Cardiac arrest, cause unspecified; I21.A1 Myocardial infarction type 2; K85.20 Alcohol induced acute pancreatitis without necrosis or infection; F10.231 Alcohol dependence with withdrawal delirium; G92 Toxic encephalopathy; E87.0 Hyperosmolality and hypernatremia; E87.2 Acidosis; E83.39 Other disorders of phosphorus metabolism; E83.42 Hypomagnesemia; E83.51 Hypocalcemia; E87.6 Hypokalemia; F11.10 Opioid abuse, uncomplicated; J96.02 Acute respiratory failure with hypercapnia; I10 Essential (primary) hypertension; K76.0 Fatty (change of) liver, not elsewhere classified; K80.70 Calculus of gallbladder and bile duct without cholecystitis without obstruction; W18.39XA Other fall on same level, initial encounter; K82.8 Other specified diseases of gallbladder; Y90.8 Blood alcohol level of 240 mg/100 ml or more; Y92.238 Other place in hospital as the place of occurrence of the external cause; Z82.49 Family history of ischemic heart disease and other diseases of the circulatory system; Z91.81 History of falling; Y93.89 Activity, other specified; Y99.8 Other external cause status
CPT/HCPCS: 31500; 36415; 36556; 36600; 51702; 70450; 71045; 74018; 76700; 80048; 80053; 80074; 80076; 80307; 80329; 81001; 82310; 82553; 82805; 82962; 83605; 83690; 83735; 83880; 84100; 84484; 85007; 85014; 85018; 85025; 85027; 85610; 85730; 86850; 86900; 86901; 87641; 92610-GN; 92950; 93005; 93306; 94003; 97116-GP; 97162-GP; 97166-GO; 97530-GO; 97535-GO; 99291-25; C9113; G0480; J0610; J1200; J1630; J1650; J2060; J2175; J2543; J2704; J2920; J2997; J3010; J3475; J3480; J7030; J7042; J7050; J7512; S0028